=== PATIENT | male | born 1980 | race Caucasian/White ===

== ENCOUNTER 2016-11-22 10:30 | Day surgery (SDC) | payer OTHER ==
[~2016-11-22 10:30] MED LIST: ONDANSETRON HCL INJ/PF 4 MG/2 ML SDV ONE
[2016-11-22] MEDS ORDERED: FENTANYL CITRATE INJ/PF 100 MCG/2 ML AMPUL ONE (10:31)
[2016-11-22] MEDS ORDERED: NALOXONE HCL INJ/PF 0.4 MG/1 ML SDV ONE (10:31)
[2016-11-22] MEDS ORDERED: GLYCOPYRROLATE INJ 0.4 MG/2 ML VIAL ONE (10:31)
[2016-11-22] MEDS ORDERED: EPINEPHRINE INJ 1 MG/10 ML DISP.SYRIN ONE (10:32)
[2016-11-22] MEDS ORDERED: FLUMAZENIL INJ 0.5 MG/5 ML VIAL IV ONE (10:32)
[2016-11-22] MEDS: MIDAZOLAM 2 MG/2 ML INJ ONE ×3 (11:08→11:14)
[2016-11-22 11:58] LABS: ABSOLUTE EOSINOPHILS # (AUTO) 0.2 10^3/uL (0.0-0.6); ABSOLUTE LYMPHOCYTES (AUTO) 1.8 10^3/uL (0.5-4.7); ABSOLUTE MONOCYTES (AUTO) 0.6 10^3/uL (0.1-1.4); ABSOLUTE NEUT (AUTO) 2.7 10^3/uL (1.7-8.2); BASOPHILS % (AUTO) 0.8 % (0-2); EOSINOPHILS % (AUTO) 4.6 % (0-6); HEMATOCRIT 43.7 % (37.9-51.0); HEMOGLOBIN 14.4 g/dL (13.5-17.0); HGB HCT DIFFERENCE -0.5; LYMPHOCYTES % (AUTO) 33.5 % (13-45); MEAN CORPUSCULAR HEMOGLOBIN 27.9 pg (27.0-33.4); MEAN CORPUSCULAR HGB CONC 32.9 g/dL (32.0-36.0); MEAN CORPUSCULAR VOLUME 85 fl (80-97); MONOCYTES % (AUTO) 11.8 % (3-13); RED BLOOD COUNT 5.15 10^6/uL (4.35-5.55); RED CELL DISTRIBUTION WIDTH 13.3 % (11.5-14.0); SEGMENTED NEUTROPHILS % (AUTO) 49.3 % (42-78); WHITE BLOOD COUNT 5.4 10^3/uL (4.0-10.5)
[2016-11-22 12:24] VITALS: BP 112/71
[2016-11-22 12:32] LABS: ALANINE AMINOTRANSFERASE 38 U/L (21-72); ALBUMIN 3.8 g/dL (3.5-5.0); ALKALINE PHOSPHATASE 65 U/L (38-126); AMYLASE 39 U/L (30-110); ANION GAP 7 (5-19); ASPARTATE AMINO TRANSFERASE 25 U/L (17-59); BILIRUBIN,DIRECT 0.2 mg/dL (0.0-0.4); BLOOD UREA NITROGEN 19 mg/dL (7-20); CALCIUM 8.8 mg/dL (8.4-10.2); CARBON DIOXIDE 30 mmol/L (22-30); CHLORIDE 103 mmol/L (98-107); CREATININE RESULT 1.09 mg/dL (0.52-1.25); GLUCOSE 111 mg/dL (75-110); LIPASE 57.1 U/L (23-300); POTASSIUM 4.2 mmol/L (3.6-5.0); SODIUM 139.5 mmol/L (137-145); TOTAL PROTEIN 6.6 g/dL (6.3-8.2)
--- NOTE | 2016-11-26 11:34 | HISTORY AND PHYSICAL E ---
History and Physical NAME: MERCEDES FINN : 1980 AGE: 36Y ADMITTED: 11/22/2016 ROOM: CHIEF COMPLAINT: Reflux. HISTORY OF PRESENT ILLNESS: A 36-year-old male was seen in the emergency room in September for atypical chest pain. He was treated with PPI with good improvement. He runs out of his PPI and now he has a flareup of his reflux and atypical chest pain. Patient sent to us for further evaluation. SOCIAL HISTORY: , does not smoke, drinks rarely. PAST HISTORY: The patient did have head injury with stitches from accident. REVIEW OF SYSTEMS: HEENT: As mentioned, head injury with sutures. RESPIRATORY: Negative. CARDIAC: Negative cardiac workup in September. ENDOCRINE: Negative. GASTROINTESTINAL: Reflux, abdominal pain. ONCOLOGY/HEMATOLOGY: Negative. NEUROLOGY: Negative. FAMILY HISTORY: Father is alive, skin disorder. Mom is alive, she has breast lesion. PHYSICAL EXAMINATION: GENERAL: Alert and oriented, 36. VITAL SIGNS: Weight 200, blood pressure 100/70, pulse 77, temperature is 98. HEAD, EYES, EARS, NOSE AND THROAT: Normal. ABDOMEN: Soft. NEUROLOGIC EXAM: Negative. MEDICATIONS: 1. Omeprazole. 2. Vitamins. 3. Ibuprofen. 4. Advil. PLAN: 1. Gallbladder ultrasound. 2. Upper endoscopy, 11/22. 3. The patient advised to go to the emergency room if his pain is worse or the same, awaiting gallbladder ultrasound and upper endoscopy. CONCLUSION: 1. Gastroesophageal reflux. 2. Atypical chest pain. DICTATING PHYSICIAN: EL LNIDER M.D. [id number] [facility]#: [id number] ID: [id number] JOB#: [id number] ACCT: [id number] cc:[facility] KANNAPOLISAaron M.D. >
--- NOTE | 2016-11-26 11:37 | OPERATIVE REPORT E ---
Operative Report NAME: MERCEDES FINN : 1980 AGE: 36Y DATE OF SURGERY: 11/22/2016 ROOM: PREOPERATIVE DIAGNOSIS: Abdominal pain. POSTOPERATIVE DIAGNOSES: 1. Esophagitis. 2. Gastritis. 3. Duodenitis. PROCEDURES: 1. Esophagoscopy. 2. Gastroscopy. 3. Duodenoscopy. SURGEON: EL LINDER M.D. TISSUE REMOVED OR ALTERED: Gastric biopsy for H. pylori. ANESTHESIA: 1. Versed 4 mg. 2. Fentanyl 100 mcg. DESCRIPTION OF PROCEDURE: Baby scope passed under guided vision. No difficulties. ESOPHAGOSCOPY: Junction at 40. Mild esophagitis. GASTROSCOPY: Mild gastritis. No ulcers. DUODENOSCOPY: Mild duodenitis. No ulcers. CONCLUSION: 1. Esophagitis. 2. Gastritis. 3. Duodenitis. 4. No evidence of ulcers. PLAN: 1. Awaiting biopsy. 2. Continue present management. 3. Patient to see us in the office in the next few days. DISPOSITION: Patient tolerated the procedure well, discharged to his room in a stable condition. DICTATING PHYSICIAN: EL LINDER M.D. [id number] PHY#: [id number] ID: [id number] JOB#: [id number] ACCT: [id number] cc:[facility], EL LINDER M.D. >
--- NOTE | 2016-11-26 11:46 | DISCHARGE SUMMARY E ---
Discharge Summary NAME: MERCEDES FINN : 1980 AGE: 36Y ADMITTED: 11/22/2016 DISCHARGED: 11/22/2016 PROCEDURE: EGD with biopsy. HISTORY: The patient is a 36, referred to us by [facility], regarding reflux, abdominal pain. PAST SURGICAL HISTORY: He did have stitches for accident on his skull/head. FAMILY HISTORY: Father is alive. Mom has breast lesion. SOCIAL HISTORY: . Does not smoke. He drinks rarely. REVIEW OF SYSTEMS: HEAD, EYES, EARS, NOSE, THROAT: Negative. CARDIAC: Cardiac clearance negative. GASTROINTESTINAL: Reflux, abdominal pain. ONCOLOGIC/HEMATOLOGIC: Negative. PHYSICAL EXAMINATION: VITAL SIGNS: Blood pressure 100/70. ABDOMEN: Soft. DIAGNOSTIC DATA: Upper scope shows no ulcers, mild esophagitis, gastritis, duodenitis. The patient did have ultrasonography showing 2 mm gallstones floating. Gallbladder, pancreas, liver, right kidney unremarkable. The patient did have tenderness over the stomach. CONCLUSION: 1. Abdominal pain. 2. Nausea and vomiting. PLAN: 1. Awaiting biopsy. 2. Continue Prilosec. 3. Try to hold nonsteroidal. 4. Consider surgical consult regarding biliary stones. DICTATING PHYSICIAN: EL LINDER M.D. [id number] [facility]#: [id number] ID: [id number] JOB#: [id number] ACCT: [id number] cc:EL LINDER M.D. >
== END 2016-11-22 12:30 | disposition home or self-care (01) ==
LOC: END 10:30
PROVIDERS: ATTEND Specialist
PROC: 0DB68ZX Excision of Stomach, Via Natural or Artificial Opening Endoscopic, Diagnostic (ICD-10-PCS; principal; 2016-11-22 11:00)
DX: K21.0 Gastro-esophageal reflux disease with esophagitis (principal); K31.9 Disease of stomach and duodenum, unspecified; K29.80 Duodenitis without bleeding; Z79.899 Other long term (current) drug therapy; Z79.1 Long term (current) use of non-steroidal anti-inflammatories (NSAID)
CPT/HCPCS: 43239; 36415; 82150; 83690; 85025; 80053; 88342 ×2; 88305 ×2; J2250; J3010; J2310; J2405; J0171; J3490

== ENCOUNTER 2016-12-10 15:29 | Day surgery (SDC) | payer OTHER ==
[2016-12-09 11:07] LABS: HEMATOCRIT 46.5 % (37.9-51.0); HEMOGLOBIN 15.1 g/dL (13.5-17.0); HGB HCT DIFFERENCE -1.2; MEAN CORPUSCULAR HEMOGLOBIN 27.7 pg (27.0-33.4); MEAN CORPUSCULAR HGB CONC 32.6 g/dL (32.0-36.0); MEAN CORPUSCULAR VOLUME 85 fl (80-97); RED BLOOD COUNT 5.46 10^6/uL (4.35-5.55); RED CELL DISTRIBUTION WIDTH 13.1 % (11.5-14.0)
[2016-12-09 11:29] LABS: ALANINE AMINOTRANSFERASE 40 U/L (21-72); ALBUMIN 4.1 g/dL (3.5-5.0); ALKALINE PHOSPHATASE 77 U/L (38-126); ANION GAP 13 (5-19); ASPARTATE AMINO TRANSFERASE 22 U/L (17-59); BILIRUBIN,DIRECT 0.2 mg/dL (0.0-0.4); BILIRUBIN,TOTAL 1.1 mg/dL (0.2-1.3); BLOOD UREA NITROGEN 16 mg/dL (7-20); CALCIUM 9.4 mg/dL (8.4-10.2); CARBON DIOXIDE 28 mmol/L (22-30); CHLORIDE 102 mmol/L (98-107); CREATININE RESULT 1.14 mg/dL (0.52-1.25); GLUCOSE 65 mg/dL (75-110); POTASSIUM 4.5 mmol/L (3.6-5.0); TOTAL PROTEIN 7.2 g/dL (6.3-8.2)
[~2016-12-10 15:29] MED LIST changes: +ACETAMINOPHEN 325 MG TABLET PO PRN; +CEFAZOLIN 1 GM/D5W RTU 1 GM/50 ML RTUPB IV PRN; -ONDANSETRON HCL INJ/PF 4 MG/2 ML SDV ONE; +RINGERS SOLUTION,LACTATED 1,000 ML IV PRN
[2016-12-10] MEDS ORDERED: CEFAZOLIN 1 GM/D5W RTU 1 GM/50 ML RTUPB IV ONE (15:41)
[2016-12-10] MEDS ORDERED: BUPIVACAINE HCL 0.25 % INJ/PF (2.5 MG/1 ML) 30 ML VIAL ONE (21:28)
[2016-12-10] MEDS ORDERED: MIDAZOLAM 2 MG/2 ML INJ ONE (21:47)
[2016-12-10] MEDS ORDERED: FENTANYL CITRATE INJ/PF 250 MCG/5 ML AMPULE ONE (21:47)
[2016-12-10] MEDS ORDERED: PROPOFOL INJ 200 MG/20 ML VIAL IV ONE (21:48)
[2016-12-10] MEDS ORDERED: IBUPROFEN INJ 800 MG/8 ML VIAL IV ONE (21:48)
[2016-12-10] MEDS ORDERED: MORPHINE SULFATE 10 MG/ML INJ ONE (21:48)
[2016-12-10] MEDS ORDERED: BUPIVACAINE HCL 0.25 % INJ/PF (2.5 MG/1 ML) 30 ML VIAL INJ ONE (22:16)
[2016-12-10] MEDS ORDERED: DIPHENHYDRAMINE HCL 50 MG/ML VIAL IV PRN (22:27)
[2016-12-10] MEDS ORDERED: FENTANYL CITRATE INJ/PF 100 MCG/2 ML AMPUL IV PRN ×3 (22:27)
[2016-12-10] MEDS ORDERED: MORPHINE SULFATE 10 MG/ML INJ IV PRN ×2 (22:27→23:29)
--- NOTE | 2016-12-10 23:27 | Operative Report ---
Operative Report DATE OF SURGERY: 12/10/16 PREOPERATIVE DIAGNOSIS: Symptomatic gallstones POSTOPERATIVE DIAGNOSIS: Symptomatic gallstones OPERATION: Laparoscopic cholecystectomy SURGEON: DAVIDSON NUNES ANESTHESIA: GA TISSUE REMOVED OR ALTERED: gallbladder COMPLICATIONS: None ESTIMATED BLOOD LOSS: Minimal INTRAOPERATIVE FINDINGS: Fatty encased gallbladder at the zofia hepatis. Adhered gallbladder to the common bile duct. PROCEDURE: Informed consent was obtained. Patient was brought to the operating room placed operating table in supine position. After satisfactory induction of general anesthesia, patient's abdomen was prepped and draped in usual sterile fashion. A infraumbilical midline incision was made and dissection carried down to the fascia the peritoneal cavity entered without difficulty. Noonan trocar was inserted. Pneumoperitoneum produced good patient toleration. 5 mm trocar was placed in the subxiphoid location.Two 5 mm trochars were placed in the right subcostal location. The gallbladder was grasped and retracted cephalad over the dome of the liver. The lower portion of the gallbladder at the zofia hepatis was completely encased in fat making the anatomy difficult to define. The fat was gently teased away. The infundibulum of the gallbladder was grasped and retracted laterally and inferiorly thus exposing close triangle. Fibrous tissue was encountered making the dissection difficult. The distal portion of the gallbladder was dissected first since there was scarring at closed triangle. Meticulous and careful dissection was performed revealing that the gallbladder was adhered to the common bile duct. The cystic duct was folded onto the common bile duct as well. The anatomy was clearly defined. The cystic duct gallbladder junction was clearly identified and the cystic duct was clipped and divided. Cystic artery was likewise taken. The gallbladder was taken off the gallbladder bed using the hook electrocautery technique. The gallbladder was removed with an Endobag through the Noonan trocar site fascial defect. Hemostasis appeared excellent. The operative field was irrigated and irrigant aspirated out. Irrigation fluid was perfectly clear at the end of the case. All trochars were removed under the direct vision a laparoscope to ensure hemostasis. The Noonan trocar site fascial defect was closed with interrupted Vicryl sutures. All skin incisions were closed with subcuticular interrupted Monocryl sutures. Marcaine was injected at the port sites. Patient tolerated procedure well no apparent complications and was taken to the recovery area in stable condition.
[2016-12-10] MEDS ORDERED: ONDANSETRON HCL INJ/PF 4 MG/2 ML SDV IV PRN (23:29)
[2016-12-10] MEDS ORDERED: OXYCODONE-ACETAMINOPHEN 5-325 MG TABLET PO PRN (23:29)
[2016-12-10] MEDS ORDERED: RINGERS SOLUTION,LACTATED 1,000 ML IV PRN (23:29)
--- NOTE | 2016-12-10 23:29 | PDOC DISCHARGE SUMMARY ---
Discharge Summary (SDC) - Discharge Final Diagnosis: Symptomatic gallstones Date of Surgery: 12/10/16 Discharge Date: 12/11/16 Condition: Good Treatment or Instructions: Underwent laparoscopic cholecystectomy. May discharge patient home when met discharge criteria. Follow-up with me in 2 weeks. Stay active at home but avoid strenuous activity. May shower in 2 days. Prescriptions: Oxycodone HCl/Acetaminophen [Percocet 5-325 mg Tablet] 1 - 2 tab PO ASDIR PRN # 25 tablet PRN Reason: Discharge Diet: As Tolerated Discharge Activity: Activity As Tolerated - Stay active but avoid strenuous activity. Report the Following to Your Physician Immediately: Yellow Skin, Fever over 101 Degrees, Unusual Bleeding, Redness, Drainage-Foul Smelling
[2016-12-11] MEDS ORDERED: SUCCINYLCHOLINE CHLORIDE INJ 200 MG/10 ML VIAL ONE
[2016-12-11] MEDS ORDERED: ROCURONIUM BROMIDE INJ 50 MG/5 ML VIAL IV ONE
[2016-12-11] MEDS ORDERED: GLYCOPYRROLATE INJ 0.4 MG/2 ML VIAL ONE
[2016-12-11] MEDS ORDERED: METOCLOPRAMIDE HCL INJ/PF 10 MG/2 ML SDV ONE
[2016-12-11] MEDS ORDERED: NEOSTIGMINE METHYLSULFATE 10 MG/10 ML VIAL ONE
[2016-12-11] MEDS ORDERED: LIDOCAINE 2% INJ-PF (20 MG/ML) 10 ML AMPUL ONE
[2016-12-11] MEDS ORDERED: ONDANSETRON HCL INJ/PF 4 MG/2 ML SDV ONE
[2016-12-11 00:59] VITALS: BP 123/70
== END 2016-12-11 02:30 | disposition home or self-care (01) ==
LOC: OROUT 15:29 → UNDOADMOB 12-11 00:27 → 2N 12-11 00:27 → UNDODISOB 12-11 02:30 → OROUT 12-11 02:30
PROVIDERS: ATTEND Surgery
PROC: 0FT44ZZ Resection of Gallbladder, Percutaneous Endoscopic Approach (ICD-10-PCS; principal; 2016-12-10 16:45)
DX: K81.1 Chronic cholecystitis (principal); K21.9 Gastro-esophageal reflux disease without esophagitis; Z87.891 Personal history of nicotine dependence; Z79.899 Other long term (current) drug therapy
CPT/HCPCS: 36415; 85027; 80053; 88304 ×2; 47562; J2250; J0690; J3490 ×2; J3010; J2765; J0330; J2405; J2704; J1741; 790; J2270

== ENCOUNTER 2016-12-12 05:34 | Emergency (ER) | payer OTHER ==
[2016-12-12] MEDS ORDERED: ONDANSETRON HCL INJ/PF 4 MG/2 ML SDV IV ONE (07:17)
[2016-12-12] MEDS ORDERED: MORPHINE SULFATE 10 MG/ML INJ IV ONE (07:17)
--- NOTE | 2016-12-12 07:39 | ER Document Report ---
ED General - General Chief Complaint: Fever Stated Complaint: FEVER Time Seen by Provider: 12/12/16 06:14 Mode of Arrival: Ambulatory Information source: Patient, Relative Notes: 36-year-old male recent cholecystectomy 2 days prior presents with complaints of fevers chills productive cough shortness of breath. Patient denies any urinary complaints admits to generalized abdominal pain TRAVEL OUTSIDE OF THE [place] IN LAST 30 DAYS: No - HPI Onset: Yesterday Onset/Duration: Persistent Quality of pain: Achy Severity: Mild Pain Level: 1 Associated symptoms: Fever, Nausea, Vomiting Exacerbated by: Denies Relieved by: Denies Similar symptoms previously: No Recently seen / treated by doctor: Yes - Related Data Allergies/Adverse Reactions: No Known Allergies Allergy (Verified 12/06/16 11:44) Past Medical History - Social History Smoking Status: Never Smoker Cigarette use (# per day): No Chew tobacco use (# tins/day): No Smoking Education Provided: No Family History: Reviewed & Not Pertinent Patient has suicidal ideation: No - Past Medical History Cardiac Medical History: Denies: Hx Coronary Artery Disease, Hx Heart Attack, Hx Hypertension Pulmonary Medical History: Denies: Hx Asthma, Hx Bronchitis, Hx COPD, Hx Pneumonia Neurological Medical History: Denies: Hx Cerebrovascular Accident, Hx Seizures Renal/ Medical History: Denies: Hx Peritoneal Dialysis Musculoskeltal Medical History: Denies Hx Arthritis - Immunizations Hx Diphtheria, Pertussis, Tetanus Vaccination: Yes Review of Systems - Review of Systems Notes: REVIEW OF SYSTEMS: CONSTITUTIONAL : Admits to fevers chills EENT: Denies eye, ear, throat, or mouth pain or symptoms. Denies nasal or sinus congestion or discharge. Denies throat, tongue, or mouth swelling or difficulty swallowing. CARDIOVASCULAR: Denies chest pain. Denies palpitations or racing or irregular heart beat. Denies ankle edema. RESPIRATORY: Admits to shortness of breath GASTROINTESTINAL: Admits to abdominal pain GENITOURINARY: Denies difficulty urinating, painful urination, burning, frequency, blood in urine, or discharge. MUSCULOSKELETAL: Denies back or neck pain or stiffness. Denies joint pain or swelling. SKIN: Denies rash, lesions or sores. HEMATOLOGIC : Denies easy bruising or bleeding. LYMPHATIC: Denies swollen, enlarged glands. NEUROLOGICAL: Denies confusion or altered mental status. Denies passing out or loss of consciousness. Denies dizziness or lightheadedness. Denies headache. Denies weakness or paralysis or loss of use of either side. Denies problems with gait or speech. Denies sensory loss, numbness, or tingling. Denies seizures. PSYCHIATRIC: Denies anxiety or stress. Denies depression, suicidal ideation, or homicidal ideation. ALL OTHER SYSTEMS REVIEWED AND NEGATIVE. Dictation was performed using [employer] voice recognition software PHYSICAL EXAMINATION: GENERAL: Well-appearing, well-nourished and in no acute distress. HEAD: Atraumatic, normocephalic. EYES: Pupils equal round and reactive to light, extraocular movements intact, sclera anicteric, conjunctiva are normal. ENT: Nares patent, oropharynx clear without exudates. Moist mucous membranes. NECK: Normal range of motion, supple without lymphadenopathy LUNGS: Breath sounds clear to auscultation bilaterally and equal. No wheezes rales or rhonchi. HEART: Regular rate and rhythm without murmurs ABDOMEN: Soft, generalized abdominal tenderness, surgical incisions no drainage is noted no cellulitis Musculoskeletal: Normal range of motion, no pitting or edema. No cyanosis. NEUROLOGICAL: Cranial nerves grossly intact. Normal speech, normal gait. Normal sensory, motor exams PSYCH: Normal mood, normal affect. SKIN: Warm, Dry, normal turgor, no rashes or lesions noted. Physical Exam - Vital signs Vitals: Temp Pulse Resp BP Pulse Ox 99.9 F 108 H 20 109/65 91 L 12/12/16 05:42 12/12/16 05:42 12/12/16 05:42 12/12/16 05:42 12/12/16 05:42 Course - Re-evaluation Re-evalutation: 12/12/16 07:39 Patient is noted to be hypoxic, concern for pneumonia versus PE versus intra- abdominal abscess 12/12/16 11:[address] Haley regarding patient, CT was consistent with pneumonia , patient was ambulated and O2 sat was 95% at the lowest. Will be discharged given that he is no longer hypoxic Very strict return precautions provided to the patient 3 After performing a Medical Screening Examination, I estimate there is LOW risk for ACUTE CORONARY SYNDROME, RESPIRATORY FAILURE, SEPSIS OR MENINGITIS, thus I consider the discharge disposition reasonable. I have reevaluated this patient multiple times and no significant life threatening changes are noted. The patient and I have discussed the diagnosis and risks, and we agree with discharging home with close follow-up. We also discussed returning to the Emergency Department immediately if new or worsening symptoms occur. We have discussed the symptoms which are most concerning (e.g., changing or worsening pain, trouble swallowing or breathing, neck stiffness, fever) that necessitate immediate return. - Vital Signs Vital signs: Temp Pulse Resp BP Pulse Ox 100.4 F 108 H 15 116/67 94 12/12/16 10:00 12/12/16 05:42 12/12/16 10:01 12/12/16 10:01 12/12/16 10:01 - Laboratory Result Diagrams: 12/12/16 07:40 12/12/16 07:40 Laboratory results interpreted by me: 12/12/16 12/12/16 07:40 07:40 WBC 16.7 H D RBC 5.57 H Seg Neuts % (Manual) 82 H Lymphocytes % (Manual) 2 L Abs Neuts (Manual) 14.4 H Total Bilirubin 1.5 H - Diagnostic Test Radiology reviewed: Image reviewed, Reports reviewed - CT consistnat with pneumonia - EKG Interpretation by Me EKG shows normal: Sinus rhythm, [place], Intervals, QRS Complexes Discharge - Discharge Clinical Impression: Pneumonia Qualifiers: Pneumonia type: aspiration pneumonia Aspiration pneumonia type: unspecified Laterality: right Lung location: lower lobe of lung Qualified Code(s): J69.0 - Pneumonitis due to inhalation of food and vomit Fever Qualifiers: Fever type: unspecified Qualified Code(s): R50.9 - Fever, unspecified Condition: Stable Disposition: HOME, SELF-CARE Instructions: Fever ([facility]), Pneumonia ([facility]) Prescriptions: Levofloxacin [Levaquin 750 mg Tablet] 750 mg PO DAILY #5 tablet
[2016-12-12] MEDS: NORMAL SALINE 1000 ML 1,000 ML IV PRN ×2 (07:40→09:10)
[2016-12-12 08:02] LABS: HEMATOCRIT 46.9 % (37.9-51.0); HEMOGLOBIN 15.4 g/dL (13.5-17.0); HGB HCT DIFFERENCE -0.7; MEAN CORPUSCULAR HEMOGLOBIN 27.6 pg (27.0-33.4); MEAN CORPUSCULAR HGB CONC 32.8 g/dL (32.0-36.0); MEAN CORPUSCULAR VOLUME 84 fl (80-97); RED BLOOD COUNT 5.57 10^6/uL (4.35-5.55); RED CELL DISTRIBUTION WIDTH 13.4 % (11.5-14.0)
[2016-12-12 08:14] LABS: WHITE BLOOD COUNT 16.7 10^3/uL (4.0-10.5)
[2016-12-12 08:35] LABS: ALANINE AMINOTRANSFERASE 66 U/L (21-72); ALBUMIN 4.2 g/dL (3.5-5.0); ALKALINE PHOSPHATASE 88 U/L (38-126); ANION GAP 11 (5-19); ASPARTATE AMINO TRANSFERASE 43 U/L (17-59); BILIRUBIN,DIRECT 0.3 mg/dL (0.0-0.4); BILIRUBIN,TOTAL 1.5 mg/dL (0.2-1.3); BLOOD UREA NITROGEN 11 mg/dL (7-20); CALCIUM 9.3 mg/dL (8.4-10.2); CARBON DIOXIDE 29 mmol/L (22-30); CHLORIDE 100 mmol/L (98-107); CREATININE RESULT 1.19 mg/dL (0.52-1.25); GLUCOSE 96 mg/dL (75-110); POTASSIUM 4.7 mmol/L (3.6-5.0); SODIUM 139.6 mmol/L (137-145); TOTAL PROTEIN 7.3 g/dL (6.3-8.2)
[2016-12-12 08:37] LABS: BAND NEUTROPHILS % (MANUAL) 4 % (3-5); BASOPHILS % (MANUAL) 0 % (0-2); EOSINOPHILS % (MANUAL) 0 % (0-6); LYMPHOCYTES % (MANUAL) 2 % (13-45); TOTAL CELLS COUNTED 100
[2016-12-12 08:38] LABS: OVALOCYTES SLIGHT; POIKILOCYTOSIS SLIGHT
[2016-12-12 08:53] LABS: APPEARANCE,URINE CLEAR; BILIRUBIN,URINE NEGATIVE (NEGATIVE); GLUCOSE, URINE NEGATIVE (NEGATIVE); KETONES,URINE NEGATIVE (NEGATIVE); LEUKOCYTE ESTERASE,URINE NEGATIVE (NEGATIVE); NITRITE,URINE NEGATIVE (NEGATIVE); PROTEIN,URINE NEGATIVE (NEGATIVE); URINE SPECIFIC GRAVITY 1.013; UROBILINOGEN,URINE NEGATIVE mg/dL (<2.0)
[2016-12-12] MEDS ORDERED: ACETAMINOPHEN 325 MG TABLET PO ONE (10:13)
--- NOTE | 2016-12-12 10:32 | RADIOLOGY REPORT (SQ) ---
EXAM DESCRIPTION: CT ABD/PELVIS WITH IV ORAL COMPLETED DATE/TIME: 12/12/2016 9:56 am REASON FOR STUDY: post op fever: GB surgery 2 days ago COMPARISON: None. TECHNIQUE: CT scan of the abdomen and pelvis performed using helical scanning technique with dynamic intravenous contrast injection. No oral contrast. Images reviewed with lung, soft tissue, and bone windows. Reconstructed coronal and sagittal MPR images reviewed. Delayed images for evaluation of the urinary system also acquired. All images stored on PACS. All CT scanners at this facility use dose modulation, iterative reconstruction, and/or weight based d osing when appropriate to reduce radiation dose to as low as reasonably achievable (ALARA). [facility]: Dose Right [facility]: CareDose [facility]: Dose Right [facility]: Teradose 4D [facility]: Sutus CONTRAST TYPE AND DOSE: 99 cc Isovue 370- low osmolar. RENAL FUNCTION: Creatinine 1.2 BUN 11 RADIATION DOSE: 36.49. LIMITATIONS: None. FINDINGS: LOWER CHEST: See separate report of the CT of the chest. LIVER: Normal size. No masses. No dilated ducts. SPLEEN: Normal size. No focal lesions. PANCREAS: No masses. No significant calcifications. No adjacent inflammation or peripancreatic fluid collections. Pancreatic duct not dilated. There is no evidence of pancreatitis. GALLBLADDER: Surgically absent. ADRENAL GLANDS: No significant masses or asymmetry. RIGHT KIDNEY AND URETER: No solid masses. No significant calcifications. No hydronephrosis or hyd roureter. LEFT KIDNEY AND URETER: No solid masses. No significant calcifications. No hydronephrosis or hydr oureter. There is no thickening of the anterior renal fascia. AORTA AND VESSELS: No aneurysm. No dissection. Renal arteries, SMA, celiac without stenosis. RETROPERITONEUM: No retroperitoneal adenopathy, hemorrhage or masses. BOWEL AND PERITONEAL CAVITY: The jejunum is mildly dilated. There is no transition point. The bowel appears to transition to a normal caliber gradually. Considerable stool is present in the right col on and transverse colon. There are no abnormal fluid collections. APPENDIX: Not identified. PELVIS: The urinary bladder is normal. The prostate gland and seminal vesicles are normal. There is no free fluid in the pelvis. ABDOMINAL WALL: No masses. No hernias. BONES: No significant or acute findings. OTHER: No other significant finding. IMPRESSION: A portion of the jejunum is somewhat dilated but there is not appear to be obstruction. The appearance is most suggestive of a localized ileus. There is no evidence of pancreatitis or oth er inflammatory process in the upper abdomen. There is considerable stool in the right colon and tra nsverse colon. TECHNICAL DOCUMENTATION: JOB ID: [id number] Quality ID # [id number]: Final reports with documentation of one or more dose reduction techniques (e.g., Au tomated exposure control, adjustment of the mA and/or kV according to patient size, use of iterative reconstruction technique) 2010 [employer]- All Rights Reserved
--- NOTE | 2016-12-12 10:41 | RADIOLOGY REPORT (SQ) ---
EXAM DESCRIPTION: CTA CHEST COMPLETED DATE/TIME: 12/12/2016 9:56 am REASON FOR STUDY: sob, fever, recent surgery COMPARISON: None. TECHNIQUE: CT scan of the chest performed using helical scanning technique with dynamic intravenous contrast injection. Images reviewed with lung, soft tissue and bone windows. Reconstructed coronal and sagittal MPR images reviewed. Additional 3 dimensional post-processing performed to develop Maximal Intensity Projection images (DC P). All images stored on PACS. All CT scanners at this facility use dose modulation, iterative reconstruction, and/or weight based d osing when appropriate to reduce radiation dose to as low as reasonably achievable (ALARA). [facility]: Dose Right [facility]: CareDose [facility]: Dose Right [facility]: Teradose 4D [facility]: sharing.it CONTRAST TYPE AND DOSE: contrast/concentration: Isovue 370.00 mg/ml; Total Contrast Delivered: 98.0 ml; Total Saline Delivered: 73.0 ml RENAL FUNCTION: Creatinine 1.2 BUN 11 RADIATION DOSE: 41.08 mGy. LIMITATIONS: None. FINDINGS: LUNGS AND PLEURA: There is increased opacification in the lower lobes bilaterally. This i s most suggestive of subsegmental atelectasis, but an infiltrate cannot be ruled out in either lower lobe. Correlate clinically. AORTA AND GREAT VESSELS: No aneurysm or dissection. HEART: No pericardial effusion. PULMONARY ARTERIES: No emboli visualized in the main pulmonary arteries or the segmental branches. HILAR AND MEDIASTINAL STRUCTURES: No identified masses or abnormal nodes. HARDWARE: None in the chest. UPPER ABDOMEN: See separate report of the CT of the abdomen. THYROID AND OTHER SOFT TISSUES: No masses. No adenopathy. BONES: No acute or significant finding. 3D MIPS: Confirm above findings. OTHER: No other significant finding. IMPRESSION: 1. There is no evidence of pulmonary emboli. 2. Lower lobe subsegmental atelectasis versus infiltrate. TECHNICAL DOCUMENTATION: JOB ID: [id number] Quality ID # [id number]: Final reports with documentation of one or more dose reduction techniques (e.g., Au tomated exposure control, adjustment of the mA and/or kV according to patient size, use of iterative reconstruction technique) 2010 [employer]- All Rights Reserved
[2016-12-12] MEDS ORDERED: LEVOFLOXACIN 750 MG TABLET PO ONE (11:25)
[2016-12-12 12:06] VITALS: BP 123/75
== END 2016-12-12 12:10 | disposition home or self-care (01) ==
LOC: ER 05:34
DX: J69.0 Pneumonitis due to inhalation of food and vomit (principal); R50.9 Fever, unspecified; R05 Cough; R06.02 Shortness of breath; R10.84 Generalized abdominal pain; R11.2 Nausea with vomiting, unspecified; R09.02 Hypoxemia
CPT/HCPCS: 99284; 96361; 96374; 96375; 36415; 85025; 80053; 81001; 71275; 74177; J2270; J2405; J7030